=== PATIENT | male | born 1990 | race Caucasian/White ===

== ENCOUNTER 2023-04-27 03:14 | Emergency (ER) | payer OTHER ==
[~2023-04-27] VITALS: Ht 188 cm; Wt 90.7 kg
[2023-04-27] MEDS ORDERED: ONDANSETRON HCL4 MG PO (07:11)
[2023-04-27] MEDS ORDERED: DICY20TA PO (07:11)
[2023-04-27] MEDS ORDERED: PEPCID AC20 MG PO (07:11)
== END 2023-04-27 08:02 | disposition home or self-care (01) ==
LOC: ER 03:14
DX: R10.84 Generalized abdominal pain (principal); R11.2 Nausea with vomiting, unspecified